=== PATIENT | female | born 1955 | race Caucasian/White ===

== ENCOUNTER 2023-08-03 19:58 | Emergency (ER) | payer BC, OTHER ==
[~2023-08-03] VITALS: Ht 160 cm; Wt 68.0 kg
[2023-08-03 19:58] VITALS: BP 133/74; RESP 18; TEMP 97.8; O2SAT 99
[2023-08-03 20:27] VITALS: BP 133/74; RESP 16; TEMP 97.3
[2023-08-03 21:22] VITALS: PULSE 81
[2023-08-03 21:23] VITALS: O2SAT 99
[2023-08-03 21:25] LABS: BASOPHILS % (AUTO) 0.3 % (0.0-2.0); EOSINOPHILS # (AUTO) 0.1 K/uL (0-0.4); EOSINOPHILS % (AUTO) 1.3 % (0.0-4.0); HEMATOCRIT 35.6 % (36-48); HEMOGLOBIN 12.1 g/dL (12.0-16.0); LYMPHOCYTES # (AUTO) 1.8 K/uL (2.5-16.5); LYMPHOCYTES % (AUTO) 24.4 % (20.5-51.1); MEAN CORPUSCULAR HEMOGLOBIN 35 pg (27-31); MEAN CORPUSCULAR HGB CONC 34 g/dL (33-37); MEAN CORPUSCULAR VOLUME 102.5 fL (80-94); MONOCYTES % (AUTO) 13.1 % (1.7-9.3); NEUTROPHILS # (AUTO) 4.6 K/uL (1.8-7.7); NEUTROPHILS % (AUTO) 60.9 % (42.2-75.2); PLATELET COUNT (AUTO) 223 K/uL (140-450); RED BLOOD CELL COUNT(AUTO) 3.48 MIL/uL (4.20-5.40); RED CELL DISTRIBUTION WIDTH 14.9 % (11.6-13.7); WHITE BLOOD COUNT (AUTO) 7.5 K/uL (4.8-10.8)
[2023-08-03 21:34] LABS: ANION GAP 13.8 (8-16); CALCIUM 9.1 mg/dL (8.5-10.1); CARBON DIOXIDE 26.8 mmol/L (21-32); CREATININE 0.6 mg/dL (0.6-1.3); POTASSIUM 3.6 mmol/L (3.5-5.1)
[2023-08-03 21:37] LABS: INR 0.95 (0.8-1.2); PARTIAL THROMBOPLASTIN TIME 22.8 secs (22-35.6)
[2023-08-03 21:50] LABS: ALCOHOL, BLOOD 210 mg/dL (<10)
== END 2023-08-03 22:12 | disposition home or self-care (01) ==
LOC: MED 19:58
DX: F10.129 Alcohol abuse with intoxication, unspecified (principal); R47.81 Slurred speech; R26.89 Other abnormalities of gait and mobility; J45.909 Unspecified asthma, uncomplicated; I10 Essential (primary) hypertension; Z79.899 Other long term (current) drug therapy; Y90.9 Presence of alcohol in blood, level not specified
CPT/HCPCS: 36415; 70450; 70496; 70498; 71045; 80048; 84484; 85025; 85610; 85730; 86886; 86900; 86901; 93005; 99285; G0482